=== PATIENT | female | born 1960 | race Caucasian/White ===

== ENCOUNTER → 2019-04-20 | Outpatient (CLI) | payer BC ==
[~2019-04-20] MED LIST: COZAAR100 MG PO; FLEXERIL 1010 MG/TAB PO; LASIX 20MG TABL20 MG PO; MAREPA1200 MG PO; NEURONTIN300 MG/CAP PO; NEXIUM 40MG40 MG PO; PEPCID 20MG TAB20 MG PO; PREDNISONE20 MG PO; SAVELLA TITRATI PO; VITAMIN E 400 U4001 PO; ZOFRAN ODT4 MG PO
== END ==
LOC: COL.RAD 09:45
DX: M48.061 Spinal stenosis, lumbar region without neurogenic claudication (principal); M51.27 Other intervertebral disc displacement, lumbosacral region